=== PATIENT | male | born 1990 | race Caucasian/White ===

== ENCOUNTER 2020-07-31 19:05 | Emergency (ER) | payer MEDICAID, SELFPAY ==
[2020-07-31 19:07] VITALS: BP 127/78; PULSE 67; RESP 14; TEMP 36.1; O2SAT 100; BMI 22.2
--- NOTE | 2020-07-31 19:17 | CT_ITS ---
STUDY: CT ABDOMEN AND PELVIS WITHOUT CONTRAST REASON FOR EXAM: Male, 30 years old. Lower quadrant pain. Nausea and vomiting. Question kidney stone. RADIATION DOSAGE (If Supplied By Facility): CTDIvol = ( 6.69 ) mGy, DLP = ( 351.17 ) mGycm TECHNIQUE: Transaxial images were obtained from the dome of the diaphragm to the symphysis pubis without oral contrast, and without intravenous contrast. Sagittal and coronal images were reconstructed. Individualized dose optimization techniques were used for this CT. COMPARISON: None. FINDINGS: The visualized lung bases are unremarkable. The visualized portions of the heart are within normal limits. Normal liver. Normal gallbladder and extrahepatic biliary system. Normal spleen. Normal pancreas. Normal bilateral adrenal glands. Normal right kidney. Normal left kidney. Normal visualized ureters. Small hiatal hernia. The stomach is otherwise unremarkable. Normal small intestine. Cold and is thick-walled nondistended from the cecum to the rectum. There is no marked stranding of the adjacent fat however diffuse colitis cannot be ruled out. The appendix is visualized and appears normal. Normal abdominal aorta. Normal inferior vena cava. Normal retroperitoneum. Normal urinary bladder. Normal prostate. There are phleboliths in the pelvis without lymphadenopathy. No free air or free fluid is seen within the peritoneal cavity. Normal abdominal wall. Normal osseous structures. There is a metal beatriz in the left femoral shaft. CT/Abdomen/Pelvis without Cont IMPRESSION: 1. Findings suggestive of diffuse colitis 2. Question hiatal hernia. 3. Otherwise normal CT of the abdomen and pelvis. Electronically Signed: Ricci Monteiro DO at 20:05 EST Tel [phone], Service support ,
--- NOTE | 2020-07-31 19:18 | ED.VIS.GI ---
History of Present Illness Chief Complaint: Abd Pain Informant: Patient - Abdominal Pain/Flank Pain Onset: Today - around 13 hrs [employer] Context: Sudden Onset - after playing basketball this AM Timing: Continuous, Waxes and wanes Quality: Aching Location: LLQ - w/o radiation Current Severity: Severe Maximum Severity: Severe Worsened by: Nothing Relieved by: Nothing - Nausea/Vomiting/Emesis GI Symptom: Nausea, Vomiting Onset: Today Quality: Nonbilious Severity: Moderate - Diarrhea/Melena/Hematochezia GI Symptom: Negative for: Diarrhea, Melena, Hematochezia Associated Symptoms: Negative for: Dysuria, Frequency, Hematuria, Urgency Narrative: Sudden onset colicky left lower quadrant pain all day today. When he gets severe he is vomiting. Denies any urinary symptoms, fevers, chills. Never had this before. Healthy otherwise, no history of abdominal surgeries. Prior similar symptoms: No Recent Illness/Hospitalization: No Past Medical History - Allergies and Home Meds Allergies/Adverse Reactions: Allergies No Known Allergies Allergy (Verified 07/31/20 19:06) Primary Care Physician: Joe Rai DO [Primary Care Provider] - Past Medical History: None Smoking Status: Never smoker Review of Systems General: Denies: Chills, Fever, Sweats Eyes: Denies: Visual changes - bilaterally, Diplopia ENT: Denies: Rhinorrhea, Sore throat Cardiovascular: Denies: Chest pain, Palpitations Respiratory: Denies: Dyspnea, Cough, Dyspnea on exertion Gastrointestinal: Reports: Abdominal pain, Nausea, Vomiting. Denies: Diarrhea, Melena, Hematochezia Genitourinary: Denies: Dysuria, Hematuria, Frequency Musculoskeletal: Denies: Back pain, Swelling, Extremity Pain Skin: Denies: Rash, Wounds Neurological: Denies: Headache, Weakness, Numbness Physical Exam Vital Signs/Narrative: Vital Signs Temp Pulse Resp BP Pulse Ox 07/31/20 19:07 97 F L 67 14 127/78 H 100 Inital Vital Signs reviewed: Yes General: Well nourished, Well developed, Acute Distress - mild, painful Head: Normocephalic, Atraumatic Eyes: Perrl, EOMI ENT: Moist mucous membranes, No rhinorrhea Neck: Supple, Nontender Cardiovascular: Regular rate, Regular rhythm, No murmurs Respiratory: No distress, CTA bilaterally, Chest nontender Abdomen: Soft, Nondistended, Normal bowel sounds, Tender - LLQ. Negative for: Guarding, Rebound tenderness Back: Nontender, Normal Inspection. Negative for: CVA tenderness Extremities: Nontender, No edema Skin: Normal color, No rash, No Trauma Neurological: Alert, Oriented x3, Cranial nerves II-XII grossly intact, Normal Strength, Normal Sensation Psychological: Normal affect, Normal Mood Diagnostic/Tx/Re-eval Impressions Abdomen/Pelvis CT 07/31/20 19:17 IMPRESSION: 1. Findings suggestive of diffuse colitis 2. Question hiatal hernia. 3. Otherwise normal CT of the abdomen and pelvis. Electronically Signed: Ricci Monteiro DO at 20:05 EST Tel [phone], Service support , Abdomen/Pelvis CTA 07/31/20 20:25 IMPRESSION: 1. Normal abdominal aorta. Normal vasculature of the abdomen and pelvis. 2. No other major interval change from the CT of the abdomen and pelvis performed approximately one hour earlier Electronically Signed: Ricci Monteiro DO at 21:53 EST Tel [phone], Service support , 07/31/20 19:17 Abdomen/Pelvis without Cont [CT] Stat 07/31/20 20:25 CT ANGIO ABD&PEL W/O&W/DYE [CT] Stat Laboratory Results 07/31/20 07/31/20 07/31/20 19:30 19:30 19:30 WBC 14.6 H RBC 4.76 Hgb 14.3 Hct 41.4 MCV 87.0 MCH 30.0 MCHC 34.5 RDW Std Deviation 38.2 RDW Coeff of Chyna 11.9 Plt Count 295 MPV 10.4 Immature Gran % (Auto) 0.400 Neut % (Auto) 89.1 H Lymph % (Auto) 4.4 L Garza % (Auto) 5.8 Eos % (Auto) 0.1 Baso % (Auto) 0.2 Absolute Neuts (auto) 13.0 H Absolute Lymphs (auto) 0.64 L Nucleated RBC % 0 Sodium 138 Potassium 3.6 Chloride 104 Carbon Dioxide 25.0 Anion Gap 9 BUN 23 H Creatinine 1.20 Estim Creat Clear Calc 87.88 Est GFR (MDRD) Af Amer 90 Est GFR (MDRD) Non-Af 74 BUN/Creatinine Ratio 19.2 Glucose 159 H Lactic Acid Calcium 9.6 Total Bilirubin 0.60 Direct Bilirubin 0.23 AST 24 ALT 30 Alkaline Phosphatase 85 Total Protein 7.7 Albumin 4.3 Globulin 3.4 Urine Color Urine Clarity Urine pH Ur Specific [place] Urine Protein Urine Glucose (UA) Urine Ketones Urine Occult Blood Urine Nitrite Urine Bilirubin Urine Urobilinogen Ur Leukocyte Esterase Urine RBC Urine WBC Ur Squamous Epith Cells Urine Bacteria Urine Mucus 07/31/20 07/31/20 07/31/20 19:33 20:39 21:30 WBC RBC Hgb Hct MCV MCH MCHC RDW Std Deviation RDW Coeff of Chyna Plt Count MPV Immature Gran % (Auto) Neut % (Auto) Lymph % (Auto) Garza % (Auto) Eos % (Auto) Baso % (Auto) Absolute Neuts (auto) Absolute Lymphs (auto) Nucleated RBC % Sodium Potassium Chloride Carbon Dioxide Anion Gap BUN Creatinine Estim Creat Clear Calc Est GFR (MDRD) Af Amer Est GFR (MDRD) Non-Af BUN/Creatinine Ratio Glucose Lactic Acid Cancelled 1.9 Calcium Total Bilirubin Direct Bilirubin AST ALT Alkaline Phosphatase Total Protein Albumin Globulin Urine Color Yellow Urine Clarity Clear Urine pH 6.0 Ur Specific [place] 1.015 Urine Protein 30 H Urine Glucose (UA) Normal Urine Ketones 150 H Urine Occult Blood 10 H Urine Nitrite Negative Urine Bilirubin Negative Urine Urobilinogen Normal Ur Leukocyte Esterase 25 H Urine RBC 0 SEEN Urine WBC 0-5 SEEN Ur Squamous Epith Cells 0 SEEN Urine Bacteria 0 SEEN Urine Mucus 0 SEEN - Medical Decision Making Differential includes diverticulitis, kidney stone, other causes of ureteral obstruction and/or intestinal pain such as functional causes, intussusception, perforated viscus, and this list is not all inclusive. CT was obtained in addition to lab work, urine, he was treated with IV fluids analgesics and Zofran. Plain CT as above shows possible diffuse wall thickening of the colon without signs of adjacent fat stranding. No other acute abnormality seen. He has a significant leukocytosis and after Toradol and Zofran, he is still vomiting and in immense pain. To further differentiate the cause as possible in the emergency department, CT angiography of the abdomen/pelvis is obtained in addition to providing better symptom control. This showed no acute vascular blockage/process, and no other acute process. I reviewed the films and discussed with radiologist who interpreted them, and also discussed them with surgery Dr. Delgadillo. Both agree that there is nothing acute on the imaging. On reexamination after 2 doses of morphine and 3 doses of antiemetics, the patient is keenly alert and very well-appearing saying that he feels much better. I reexamined him. In the area of the ileocecal valve on the CT in his right lower quadrant, there was some prominence in the bowel/tissue there even on the noncontrast scan, he has no tenderness in this area. He is very mildly tender in the distal left lower quadrant only with no guarding or rebound tenderness, distention, or abnormal bowel sounds. At this time, it is clear he does not have an acutely surgical problem. He has a leukocytosis which is nonspecific. The initial scan was suspicious of diffuse colonic bowel wall thickening and possible colitis. He has had no bright red blood per rectum or melena, states he has been having small hard stools in the past couple weeks, normal before that. No tenesmus or mucus. Surgery does not think he necessarily needs a colonoscopy based on this information, however if he started developing bleeding that would change. He agrees that admitting him would not result in an emergent colonoscopy or other study at this time, and since the patient is doing better clinically I do not think he needs to necessarily be admitted. We discussed empiric antibiotics to cover possible infectious causes of colitis, he was given a dose of Zosyn empirically here followed by a prescription for Augmentin and I also gave him prescriptions for Sargent, dicyclomine, and Zofran to use as needed. Discussed trying to control his symptoms if they recur, and take antibiotics for couple days, and we discussed reasons to return, following up with his doctor otherwise. They are comfortable with that overall plan and all questions answered at the bedside. ED Disposition - Plan for ED Patient: Disposition: Home or Assisted Living Diagnosis: LLQ abdominal pain, Colitis Instructions: ED Unknown Causes of Abdominal ... Prescriptions: Amox/Clavulanate Tablet [Augmentin Tablet] 875 mg PO Q12H #20 tab Prescription Printed Dicyclomine HCl [Bentyl] 20 mg PO Q4H PRN #16 cap PRN Reason: abdominal cramping Prescription Printed Hydrocodone Bitart/Apap 5-325 [Sargent 5MG-325MG] 1 tab PO Q4H PRN PRN 2 Days #10 tab PRN Reason: Pain Prescription Printed Ondansetron [Zofran Odt] 8 mg PO Q8H PRN PRN #20 tab PRN Reason: Nausea Prescription Printed Referrals: Joe Rai DO [Primary Care Provider] - 3-5 Days if not improving
[2020-07-31] MEDS: 0.9% Normal Saline 1,000 ML 250 ML IV (19:28)
[2020-07-31] MEDS: Ondansetron 4 MG/2 ML Vial IV ×2 (19:29→21:11)
[2020-07-31] MEDS: Ketorolac 30 MG/ML Syringe IV (19:29)
[2020-07-31 19:49] LABS: Bacteria 0 SEEN /hpf (None Seen); Mucous, Urine 0 SEEN /hpf (<or=2+); Red Blood Cells-Urine 0 SEEN /hpf (0-5); Squamous Epithelial Cells - UA 0 SEEN /hpf (0-5)
[2020-07-31 20:08] LABS: Absolute Lymphocyte Count 0.64 X10^3/uL (0.83-4.51); Basophil# 0.03 X10^3/uL; Basophil% 0.2 % (0-1); Eosinophil# 0.01 X10^3/uL; Eosinophils% 0.1 % (0-5); Hematocrit 41.4 % (40-54); Hemoglobin 14.3 g/dL (13.0-16.5); Lymphocyte # 0.64 X10^3/ul (4.0); Lymphocyte % 4.4 % (19-41); Mean Corp Hgb Conc 34.5 g/dL (32-36); Mean Platelet Vol. 10.4 fl (6.2-12.0); Monocyte# 0.85 X10^3/uL; Monocyte% 5.8 % (0-10); NRBC Flagged by Analyzer 0 % (0-5); Neutrophil # 12.98 X10^3/uL (2.7-7.7); Neutrophil % 89.1 % (47-70); Platelet Count 295 K/mm3 (150-450); RBC Distribution Width CV 11.9 % (11.6-14.6); RBC Distribution Width SD 38.2 fl (35.1-43.9); Red Blood Count 4.76 M/mm3 (4.6-6.2); White Blood Count 14.6 K/mm3 (4.4-11.0)
[2020-07-31 20:09] LABS: Color, Urine Yellow (Yellow); Glucose, Dipstick Normal (Normal); Leukocyte Esterase-Dipstick 25 /ul (Negative); Nitrite-Dipstick Negative (Negative); Occult Blood-Urine 10 /ul (Negative); Protein-Dipstick 30 mg/dl (Negative); Specific Gravity, Urine 1.015 (1.002-1.030); Urine Bilirubin Dipstick Negative (Negative); Urine Clarity Clear (Clear); Urine Urobilinogen Normal (Normal)
[2020-07-31 20:18] LABS: Ketone-Dipstick 150 mg/dl (Negative)
[2020-07-31 20:19] LABS: White Blood Cells 0-5 SEEN /hpf (0-5)
[2020-07-31 20:20] LABS: Anion Gap 9 (5-15); BUN 23 mg/dL (7-18); BUN/Creat Ratio 19.2 RATIO (10-20); Calcium,Total 9.6 mg/dL (8.5-10.1); Chloride 104 mmol/L (98-107); EST Glomerular Filtration Rate 74 mL/min (>60); Est Glom Filt Rate - Afr Amer 90 mL/min (>60); Estimated Creatinine Clearance 87.88 ml/min; Glucose 159 mg/dL (74-106); Potassium 3.6 mmol/L (3.5-5.1); Sodium Level 138 mmol/L (136-145)
[2020-07-31] MEDS: Morphine 4 MG/ML Syringe IV ×2 (20:21→21:12)
[2020-07-31] MEDS: Metoclopramide 10 MG/2 ML Vial 5 MG IV (20:22)
--- NOTE | 2020-07-31 20:25 | CT_ITS ---
STUDY: CTA OF THE ABDOMINAL AORTA REASON FOR EXAM: Male, 30 years old. Lower abdominal pain. Leukocytosis. Nausea and vomiting. RADIATION DOSAGE (If Supplied By Facility): CTDIvol = ( 20.38 ) mGy, DLP = ( 663.77 ) mGycm TECHNIQUE: Axial CT angiography multi-detector data acquisition was obtained from the diaphragm to the ischial tuberosities following intravenous administration of IV 100mL Isovue-370. Axial images and MIP images were reconstructed from the axial data set. Post-processing of the angiographic images was performed, with multiplanar reformation and 3D reconstruction. Individualized dose optimization techniques were used for this CT. TECHNICAL QUALITY: Good COMPARISON: CT of the abdomen and pelvis, 07/31/2020 (1936) Descriptors of Narrowing: None (0%) Mild (< 50%) Moderate (50-70%) Severe (70-90%) Subtotal/Total Occlusion (90-100%) Non-Evaluable (technically non-diagnostic FINDINGS: Abdominal aorta: No demonstrated narrowing. Celiac and superior mesenteric arteries: No demonstrated narrowing. Inferior mesenteric artery: No demonstrated narrowing. Right renal artery(arteries): No demonstrated narrowing. Left renal artery(arteries): No demonstrated narrowing. Right common iliac artery: No demonstrated narrowing. Right external iliac artery: No demonstrated narrowing. Right internal iliac artery: No demonstrated narrowing. Left common iliac artery: No demonstrated narrowing. Left external iliac artery: No demonstrated narrowing. Left internal iliac artery: No demonstrated narrowing. Lung bases are clear. The heart is normal in size. Normal liver. Normal gallbladder and biliary ductal system. Normal spleen. Normal pancreas. Normal adrenal glands. Normal kidneys. Normal IVC and retroperitoneum. Normal stomach. Normal small bowel. Again seen is wall thickening and edema of the colon from the ascending colon to the rectum suggesting mild colitis. There is normal contrast-enhancement of the mesenteric arterial structures. Normal appendix. Normal urinary bladder. The prostate is borderline enlarged. Phleboliths are seen in the pelvis. There is no pelvic lymphadenopathy. No free air or free fluid is seen within the peritoneal cavity. Normal abdominal wall. Normal osseous structures. CT/CT ANGIO ABD&PEL W/O&W/DYE IMPRESSION: 1. Normal abdominal aorta. Normal vasculature of the abdomen and pelvis. 2. No other major interval change from the CT of the abdomen and pelvis performed approximately one hour earlier Electronically Signed: Ricci Monteiro DO at 21:53 EST Tel [phone], Service support ,
[2020-07-31 20:55] LABS: AST(SGOT) 24 U/L (15-37); Alanine Aminotransfer ALT/SGPT 30 U/L (16-61); Albumin, Serum 4.3 g/dL (3.2-5.0); Alkaline Phosphatase 85 U/L (45-117); Bilirubin, Direct 0.23 mg/dL (0.00-0.30); Globulin 3.4 g/dL (2.2-4.2); Protein, Total 7.7 g/dL (6.4-8.2)
[2020-07-31 21:15] VITALS: BP 150/83; PULSE 83; RESP 16; O2SAT 100
[2020-07-31 22:08] LABS: Lactic Acid 1.9 mmol/L (0.4-1.9)
[2020-07-31 23:02] VITALS: BP 146/70; PULSE 80; RESP 18; O2SAT 96
== END 2020-07-31 23:33 | disposition home or self-care (01) ==
PROVIDERS: Emergency Provider Emergency Medicine; PCP Family Medicine
DX: R10.32 Left lower quadrant pain (principal); K52.9 Noninfective gastroenteritis and colitis, unspecified
CPT/HCPCS: 74174; 74176; 80048; 80076; 81001; 83605; 85025; 96365; 96366; 96375; 96376; 99282; J7030; Q9967; A4216; J2405

== ENCOUNTER 2021-07-13 11:26 | Emergency (ER) | payer MEDICAID, SELFPAY ==
[2021-07-13 11:27] VITALS: BP 138/91; PULSE 71; RESP 18; TEMP 36.2; O2SAT 100; BMI 21.8
--- NOTE | 2021-07-13 12:30 | ED.VIS.GI ---
HPI HPI - GI History of Present Illness Chief Complaint: Abd Pain Informant: patient Abdominal Pain/Flank Pain Onset: Today Context: Gradual Onset Timing: Continuous Quality: - (Twisting) Location: LLQ Worsened by: Nothing Relieved by: Nothing Nausea/Vomiting/Emesis GI Symptom: Positive for Nausea and Vomiting Quality: Negative for Coffee ground and Hematemesis Diarrhea/Melena/Hematochezia GI Symptom: Negative for Diarrhea, Melena and Hematochezia Associated Symptoms Associated Symptoms: Negative for Dysuria, Frequency and Hematuria Narrative Narrative: Patient presents with abdominal pain that began today. Patient states the pain is over the left lower quadrant. Patient states it feels like somebody is twisting the his bowels. Patient states nothing makes it worse and nothing makes it better. Patient states it is gradually gotten worse throughout the day today. Patient admits to some nausea and vomiting. Patient denies any hematemesis or coffee-ground emesis. Patient denies any diarrhea, melena, or hematochezia. Patient denies any dysuria, frequency, or hematuria. PFSH PFSH Medical History no medical history no medical history Home Medications hydrocodone-acetaminophen 1 tab PO Q6H PRN PRN 3 Days #10 tablet 07/13/21 [Rx Last Taken Unknown] naproxen 500 mg PO BID 07/13/21 [History Last Taken Unknown] ondansetron 4 mg PO Q8H PRN PRN #10 tab 07/13/21 [Rx Last Taken Unknown] Allergy/AdvReac Type Severity Reaction Status Date / Time No Known Allergies Allergy Verified 07/13/21 11:29 Surgical History (Updated 07/13/21 @ 16:[address] Taj Lazo DO) S/P ORIF (open reduction internal fixation) fracture Social History Smoking Status: Never smoker ROS ROS ED Constitutional Constitutional ED: Reports chills, subjective and sweats; Denies fever(s) Eyes Eyes: Denies blurry vision or change in vision ENT ENT ED: Denies rhinorrhea or sore throat Cardiovascular Cardiovascular: Denies chest pain or palpitations Respiratory/Chest Respiratory/Chest: Denies cough or dyspnea Gastrointestinal Gastrointestinal: Reports abdominal pain, nausea and vomiting Genitourinary Genitourinary ED: Denies dysuria or hematuria Musculoskeletal Musculoskeletal: Reports back pain and neck pain Integumentary Denies abscess or rash Neurologic Neurologic: Denies headache(s) or weakness Allergic/Immunologic Allergic/Immunologic ED: Denies mouth swelling or urticaria EXAM Physical Exam Const Vital Signs: 07/13/21 11:27 07/13/21 13:26 07/13/21 14:29 Temperature 97.2 F L 97.6 F L Temperature Source Temporal Temporal Pulse Rate 71 59 L 59 L Respiratory Rate 18 16 19 H Blood Pressure 138/91 H 116/90 H 134/82 H Blood Pressure Mean 106 98 99 Pulse Ox 100 100 100 Oxygen Delivery Method Room Air Room Air Room Air 07/13/21 15:00 Temperature Temperature Source Pulse Rate Respiratory Rate 18 Blood Pressure Blood Pressure Mean Pulse Ox Oxygen Delivery Method Positive well nourished and well developed General Appearance ED: well developed and NAD HEENT Reports moist mucous membranes Neck supple and no JVD Resp normal respiratory effort and clear to auscultation bilaterally Cardio regular rate, regular rhythm and no murmurs GI normal to inspection, nondistended, normoactive bowel sounds and non-distended Auscultation: normoactive bowel sounds Palpation: soft and tender LLQ; Negative for guarding or rebound tenderness present Extremity normal to inspection General Extremety ED: Negative for edema or tenderness General Extremity: Negative for edema Neuro oriented x3, CN's II-XII intact bilaterally and no sensory deficits noted Sensorium / Orientation: alert Motor Exam: strength 5/5 throughout Psych mental status grossly normal Skin no rashes or lesions noted MDM MDM MDM Narrative Medical decision making narrative: Patient was given a dose of Zofran here initially. Patient was having some vomiting after trying to drink contrast. Patient was given a repeat dose of Zofran. CBC shows a leukocytosis of 16.2. Basic metabolic profile was within normal limits. Patient was given a dose of Toradol and Reglan here. CT scan of the abdomen and pelvis was obtained. There is no acute findings noted. This was interpreted by the radiologist and reviewed by myself. Urinalysis was within normal limits. Patient was advised of his findings. Patient was given a prescription for Zofran and a short course of [place]. Patient was instructed to follow-up with his primary care physician in 3 to 5 days. Patient states he has an appoint with a senior policy analyst on August 29. Patient states he will try to get in sooner. Patient understands and is agreeable with the plan. All questions were answered. Lab Data Attestation: I reviewed the patient's lab results. Labs: Laboratory Results - last 24 hr 07/13/21 07/13/21 07/13/21 12:37 12:37 16:41 WBC 16.2 H RBC 4.94 Hgb 15.5 Hct 44.8 MCV 90.7 MCH 31.4 MCHC 34.6 RDW Std Deviation 40.0 RDW Coeff of Chyna 12.1 Plt Count 281 MPV 9.7 Immature Gran % (Auto) 0.500 Neut % (Auto) 80.1 H Lymph % (Auto) 9.3 L [place] % (Auto) 9.7 Eos % (Auto) 0.2 Baso % (Auto) 0.2 Absolute Neuts (auto) 12.9 H Absolute Lymphs (auto) 1.50 Nucleated RBC % 0 Differential Comment COMMENT Diff Path Review May foll Sodium 139 Potassium 4.0 Chloride 107 Carbon Dioxide 28.0 Anion Gap 4 L BUN 20 H Creatinine 1.14 Estim Creat Clear Calc 89.88 Est GFR (MDRD) Af Amer 95 Est GFR (MDRD) Non-Af 78 BUN/Creatinine Ratio 17.5 Glucose 119 H Calcium 9.6 Urine Color Yellow Urine Clarity Clear Urine pH 9.0 Ur Specific [place] 1.015 Urine Protein 30 H Urine Glucose (UA) Normal Urine Ketones 15 H Urine Occult Blood Negative Urine Nitrite Negative Urine Bilirubin Negative Urine Urobilinogen Normal Ur Leukocyte Esterase 25 H Urine RBC 0 SEEN Urine WBC 0-5 SEEN Ur Squamous Epith Cells 0-5 SEEN Urine Bacteria 0 SEEN Urine Mucus 0 SEEN Radiography Diagnostic Testing: Clinical Impression(s) from Imaging Studies Abdomen/Pelvis CT 07/13/21 13:34 IMPRESSION: No acute findings in the abdomen or pelvis. Electronically Signed: Shane Looney MD ([place]) at 16:15 EST Reading Location ID and State: [address] [place] [address] , Service support , Discharge Plan Triage Chief Complaint: Abd Pain ED Provider: Taj Lazo Dx/Rx/DC Orders Clinical Impression: Abdominal pain Instructions: ED Abdominal Pain Unkn Cause Male... Prescriptions: New hydrocodone-acetaminophen [hydrocodone-acetaminophen] 1 TABLET tablet 1 tab PO Q6H PRN PRN (Reason: Pain) 3 Days Qty: 10 RF: 0 ondansetron [ondansetron] 4 MG tablet 4 mg PO Q8H PRN PRN (Reason: Nausea) Qty: 10 RF: 0 No Action naproxen 500 mg tablet 500 mg PO BID RF: 0 Primary Care Provider: Joe Rai Referrals: Joe Rai DO [Primary Care Provider] - 3-5 Days Disposition Disposition: Home, Self Care
[2021-07-13 12:52] LABS: Absolute Neutrophil Count 12.9 X10^3/uL (2.0-7.7); Basophil# 0.04 X10^3/uL; Basophil% 0.2 % (0-1); Eosinophil# 0.03 X10^3/uL; Eosinophils% 0.2 % (0-5); Hematocrit 44.8 % (40-54); Hemoglobin 15.5 g/dL (13.0-16.5); Lymphocyte % 9.3 % (19-41); Mean Corp Hgb Conc 34.6 g/dL (32-36); Mean Corpuscular Hgb 31.4 pg (27.0-32.0); Mean Corpuscular Volume 90.7 fL (80-94); Mean Platelet Vol. 9.7 fl (6.2-12.0); Monocyte# 1.56 X10^3/uL; Monocyte% 9.7 % (0-10); NRBC Flagged by Analyzer 0 % (0-5); Neutrophil # 12.94 X10^3/uL (2.7-7.7); Neutrophil % 80.1 % (47-70); POSITIVE DIFFERENTIAL YES; Platelet Count 281 K/mm3 (150-450); RBC Distribution Width CV 12.1 % (11.6-14.6); Red Blood Count 4.94 M/mm3 (4.6-6.2); White Blood Count 16.2 K/mm3 (4.4-11.0)
[2021-07-13 12:53] LABS: Differential Indicated SCAN CRITERIA MET
[2021-07-13 13:13] LABS: Anion Gap 4 (5-15); BUN 20 mg/dL (7-18); BUN/Creat Ratio 17.5 RATIO (10-20); Calcium,Total 9.6 mg/dL (8.5-10.1); Chloride 107 mmol/L (98-107); Creatinine, Serum 1.14 mg/dL (0.70-1.30); EST Glomerular Filtration Rate 78 mL/min (>60); Est Glom Filt Rate - Afr Amer 95 mL/min (>60); Estimated Creatinine Clearance 89.88 ml/min; Glucose 119 mg/dL (74-106); Sodium Level 139 mmol/L (136-145)
[2021-07-13 13:26] VITALS: BP 116/90; PULSE 59; RESP 16; O2SAT 100
--- NOTE | 2021-07-13 13:34 | CT_ITS ---
EXAM: CT ABDOMEN AND PELVIS WITH INTRAVENOUS CONTRAST CLINICAL INDICATION: Left lower quadrant abdominal pain TECHNIQUE: Helically acquired images were obtained of the abdomen and pelvis with intravenous contrast. This CT exam was performed using one or more of the following dose reduction techniques: automated exposure control, adjustment of the mA and/or kV according to patient size, and/or use of iterative reconstruction technique. This report was created using [employer] report generation technology. CONTRAST: 100 mL Isovue-300 COMPARISON: None. FINDINGS: LOWER THORAX: Unremarkable. Lung bases are clear. No cardiomegaly. No significant pericardial effusion. ABDOMEN: LIVER: Unremarkable. Homogeneous. No focal mass. GALLBLADDER AND BILE DUCTS: Unremarkable. No calcified gallstones. No gallbladder distention or wall edema. No intra- or extrahepatic biliary ductal dilation. PANCREAS: Unremarkable. No focal cystic or solid mass. SPLEEN: Unremarkable. Normal size without focal cystic or solid mass. ADRENALS: Unremarkable. No nodules. KIDNEYS AND URETERS: Unremarkable. Normal renal size and position. No hydronephrosis. STOMACH AND BOWEL: Sigmoid diverticulosis without evidence of adjacent stranding/diverticulitis. No stomach or bowel distention. PELVIS: APPENDIX: No evidence of acute appendicitis. BLADDER: Unremarkable. REPRODUCTIVE: Unremarkable as visualized. No mass. ABDOMEN and PELVIS: INTRAPERITONEAL SPACE: Unremarkable. No ascites or other fluid collection. No free air. BONES/JOINTS: Unremarkable. No suspicious lytic or blastic abnormality. SOFT TISSUES: Unremarkable. No discrete abdominal or pelvic wall hernia. VASCULATURE: Unremarkable. Abdominal aorta is non-dilated. LYMPH NODES: Unremarkable. No enlarged lymph nodes. CT/Abdomen/Pelvis WITH Contrast IMPRESSION: No acute findings in the abdomen or pelvis. Electronically Signed: Shane Looney MD ([place]) at 16:15 [facility] ,
[2021-07-13] MEDS: Ondansetron 4 MG/2 ML Vial IV ×2 (14:09→14:49)
[2021-07-13 14:29] VITALS: BP 134/82; PULSE 59; RESP 19; TEMP 36.4; O2SAT 100
[2021-07-13 15:00] VITALS: RESP 18
[2021-07-13 16:46] LABS: Bacteria 0 SEEN /hpf (None Seen); Mucous, Urine 0 SEEN /hpf (<or=2+); Red Blood Cells-Urine 0 SEEN /hpf (0-5)
[2021-07-13 16:49] LABS: Color, Urine Yellow (Yellow); Glucose, Dipstick Normal (Normal); Ketone-Dipstick 15 mg/dl (Negative); Leukocyte Esterase-Dipstick 25 /ul (Negative); Nitrite-Dipstick Negative (Negative); Occult Blood-Urine Negative /ul (Negative); Protein-Dipstick 30 mg/dl (Negative); Specific Gravity, Urine 1.015 (1.002-1.030); Urine Bilirubin Dipstick Negative (Negative); Urine Clarity Clear (Clear); Urine Urobilinogen Normal (Normal)
[2021-07-13 16:57] LABS: Squamous Epithelial Cells - UA 0-5 SEEN /hpf (0-5); White Blood Cells 0-5 SEEN /hpf (0-5)
[2021-07-13] MEDS: Metoclopramide 10 MG/2 ML Vial IV (17:22)
[2021-07-13] MEDS: Ketorolac 30 MG/ML Syringe IV (17:22)
[2021-07-15 12:54] LABS: Pathologist Review Reviewed
== END 2021-07-13 17:27 | disposition home or self-care (01) ==
PROVIDERS: Emergency Provider Emergency Medicine; PCP Family Medicine; Visit Provider Emergency Medicine
DX: R10.32 Left lower quadrant pain (principal); R11.2 Nausea with vomiting, unspecified; Z79.899 Other long term (current) drug therapy
CPT/HCPCS: 74177; 80048; 81001; 85025; 96374; 96375; 96376; 99284; J7030; Q9967; A4216; J2405

== ENCOUNTER 2023-04-14 13:51 | Emergency (ER) | payer MEDICAID, SELFPAY ==
[2023-04-14 13:51] VITALS: BP 134/81; PULSE 46; RESP 18; TEMP 36.3; O2SAT 100; BMI 20.9
[2023-04-14] MEDS: Ondansetron 4 MG/2 ML Vial IV (14:26)
[2023-04-14] MEDS: LORazepam 2 MG/ML Syringe 0.5 MG IV (14:26)
[2023-04-14] MEDS: Capsaicin 0.025% 1 APPLIC Tube TOPICAL (14:39)
[2023-04-14] MEDS: DiphenhydrAMINE 25 MG, ChlorproMAZINE IM 25 MG in 0.9% Normal Saline (100mL Bag) 100 ML 203 MG IV (14:40)
[2023-04-14] MEDS: Famotidine 200 MG/20 ML MDV 20 MG in 0.9% Normal Saline (Pres. free 8 ML 300 MG IV (14:40)
[2023-04-14 15:06] LABS: Anion Gap 8 (5-15); BUN 35 mg/dL (7-18); BUN/Creat Ratio 31.8 RATIO (10-20); Calcium,Total 9.6 mg/dL (8.5-10.1); Chloride 108 mmol/L (98-107); EST Glomerular Filtration Rate 81 mL/min (>60); Est Glom Filt Rate - Afr Amer 98 mL/min (>60); Estimated Creatinine Clearance 88.04 ml/min; Glucose 147 mg/dL (74-106); Potassium 4.1 mmol/L (3.5-5.1); Sodium Level 142 mmol/L (136-145)
--- NOTE | 2023-04-14 15:30 | EDS_ITS ---
HPI History of Present Illness Chief Complaint: Abd Pain Detail of Chief Complaint: Abdominal pain, nausea and vomiting Informant: patient and spouse/S.O. Onset/Context/Timing Onset: Today Context: Sudden Onset Timing: Continuous Quality: Pain Location: Abdomen Current Severity: Severe Maximum Severity: Severe Worsened by: Nothing specific Relieved by: Nothing Associated Symptoms Associated Symptoms: Lightheadedness and sweating after vomiting Narrative Narrative: Patient is a 33-year-old male who has undergone EGD, colonoscopy and scans with no known etiology for his abdominal pain with nausea vomiting. Of note patient smokes marijuana daily. Furthermore patient symptoms began after he started smoking marijuana. There is been no coffee-ground emesis or bloody emesis. His last bowel movement was today and was normal. He denies fever or night sweats. He does complain of chills after vomiting because he becomes diaphoretic. He presently does not have headache. Denies visual, ocular auditory symptoms. He denies auditory symptoms. He did have chest pain with vomiting. He presently does not have chest pain. He denies shortness of breath. He denies back pain. He has no other complaints. Prior similar symptoms: Yes Recent Illness/Hospitalization: No PFSH PFSH Home Medications hydrocodone-acetaminophen 5-325mg 5mg-325mg 1 tab PO Q6H PRN PRN Pain 3 days #10 TABLETS 07/13/21 [Rx Last Taken Unknown] naproxen 500 mg tablet 500 mg PO BID 07/13/21 [History Last Taken Unknown] ondansetron 4 mg disintegrating tablet 4 mg PO Q8H PRN PRN Nausea #10 tabs 07/13/21 [Rx Last Taken Unknown] Allergy/AdvReac Type Severity Reaction Status Date / Time No Known Allergies Allergy Verified 04/14/23 13:51 Surgical History S/P ORIF (open reduction internal fixation) fracture Social History (Updated 04/14/23 @ 15:[address] Karl Chatman MD) household members: significant other Smoking Status: Never smoker substance use type: marijuana ROS ROS ED Constitutional Constitutional ED: Denies chills, fever(s), subjective, sweats or weight loss Eyes Eyes: Denies blurry vision, change in vision or diplopia ENT ENT ED: Denies ear pain, rhinorrhea or sore throat Cardiovascular Cardiovascular: Reports other Details: Low heart rate ; Denies chest pain, orthopnea, palpitations, paroxysmal nocturnal dyspnea or racing heartbeat Respiratory/Chest Respiratory/Chest: Denies cough, dyspnea, dyspnea on exertion, orthopnea or paroxysmal nocturnal dyspnea Gastrointestinal Gastrointestinal: Reports abdominal pain, nausea and vomiting; Denies constipation, diarrhea or melena Genitourinary Genitourinary ED: Denies dysuria, hematuria or urinary frequency Musculoskeletal Musculoskeletal: Denies arthralgias, back pain, myalgias or neck pain Integumentary Denies abscess or rash Neurologic Neurologic: Denies headache(s), paresthesias or weakness Psychiatric Psychiatric: Denies anxiety or depression Endocrine Endocrinology: Denies cold intolerance or heat intolerance Hematologic/Lymphatic Hematologic/Lymphatic: Reports systems reviewed and no addt'l complaints, except as documented EXAM Physical Exam Const Vital Signs: 04/14/23 13:51 04/14/23 17:00 Temperature 97.4 F L Temperature Source Temporal Pulse Rate 46 L 83 Respiratory Rate 18 18 Blood Pressure 134/81 H 118/56 L Blood Pressure Mean 98 76 Pulse Ox 100 96 Oxygen Delivery Method Room Air Room Air Positive well nourished and well developed General Appearance ED: well developed; Negative for cyanotic, diaphoretic, NAD or pallor HEENT Reports dry mucous membranes; Denies moist mucous membranes HEENT Narrative: Head is atraumatic and normocephalic. Ears are normal. Nares are patent. Uvula is midline. Mouth ED: Yes dry mucous membranes Mouth: dry mucous membranes Eyes PERRL and EOMs intact bilaterally General Eye ED: Negative for pale conjunctiva or scleral icterus Neck no lymphadenopathy, supple and no JVD Chest Wall inspection of chest normal and palpation of chest normal Resp normal respiratory effort and clear to auscultation bilaterally Cardio regular rate, regular rhythm, S1 normal heart sound, S2 normal heart sound and no murmurs GI normal to inspection, nondistended, normoactive bowel sounds, non-tender, non- distended and no masses; Negative for hepatosplenomegaly Back/Spine no CVA tenderness Cervical Spine: Negative for cervical spine tenderness Thoracic Spine / Upper Back: Negative for thoracic spinal tenderness Lumbar Spine / Lower Back: Negative for lumbar spinal tenderness Extremity normal to inspection General Extremety ED: Negative for edema or tenderness General Extremity: Negative for edema Neuro oriented x3, CN's II-XII intact bilaterally and no sensory deficits noted Sensorium / Orientation: alert Motor Exam: strength 5/5 throughout Psych Psych Narrative: Affect is flat. Skin no rashes or lesions noted, no wounds and skin turgor normal General Skin Exam: elasticity normal; Negative for jaundice or pallor MDM MDM MDM Narrative Medical decision making narrative: Differential diagnoses include abdominal pain of unknown etiology with nausea vomiting, cannabis hyperemesis syndrome, cyclic vomiting. In light of the fact the patient had normal images and EGD and colonoscopy no imaging is needed at this time. We will obtain electrolyte panel to assess renal function and BUN to creatinine ratio as well as glucose. Patient was treated with meds for ED cyclic vomiting order set was initiated. Capsaicin cream was also ordered since he admits to daily marijuana use. Lab Data Attestation: I reviewed the patient's lab results. Lab results narrative: Basic metabolic panel is remarked for glucose of 147 and elevated BUN to creatinine ratio of 31-day 8 is consistent with dehydration. Labs: Laboratory Results - last 24 hr 04/14/23 14:39 Sodium 142 Potassium 4.1 Chloride 108 H Carbon Dioxide 26.0 Anion Gap 8 BUN 35 H Creatinine 1.10 Estim Creat Clear Calc 88.04 Est GFR (MDRD) Af Amer 98 Est GFR (MDRD) Non-Af 81 BUN/Creatinine Ratio 31.8 H Glucose 147 H Calcium 9.6 Treatment and Re-Evaluation :: Test at 1700. His symptoms are resolved. He does have a local reaction to the cream. Patient was informed my suspicions that he has cannabis hyperemesis syndrome. Recommendation is to discontinue marijuana. To prove that this is not due to marijuana he would have to stop for a minimum of 2 weeks most likely 4 weeks. Discharge Plan Triage Chief Complaint: Abd Pain Other Complaint: Nausea/Vomiting ED Provider: Karl Chatman Dx/Rx/DC Orders Clinical Impression: Cannabis hyperemesis syndrome concurrent with and due to cannabis abuse, Acute dehydration, Acute prerenal azotemia, Nondiabetic hyperglycemia Instructions: Cannabinoid Hyperemesis Syndrome, ED Hyperglycemia New Susp Diabetes Prescriptions: No Action naproxen 500 mg tablet 500 mg PO BID Patient Comments: take 1 tablet by mouth twice a day hydrocodone-acetaminophen [hydrocodone-acetaminophen] 1 TABLET tablet 1 tab PO Q6H PRN PRN (Reason: Pain) 3 Days Qty: 10 0RF ondansetron [ondansetron] 4 MG tablet 4 mg PO Q8H PRN PRN (Reason: Nausea) Qty: 10 0RF Primary Care Provider: Joe Rai Referrals: Joe Rai DO [Primary Care Provider] - 5-7 Days Activity Restrictions/Additional Instructions: 1. Your blood sugar is elevated. You will need to have this reassessed by your doctor within the next week. Disposition Disposition: Home, Self Care
[2023-04-14 17:00] VITALS: BP 118/56; PULSE 83; RESP 18; O2SAT 96
== END 2023-04-14 17:27 | disposition home or self-care (01) ==
PROVIDERS: Emergency Provider Emergency Medicine; PCP Family Medicine; Visit Provider Emergency Medicine
DX: F12.10 Cannabis abuse, uncomplicated (principal); R11.2 Nausea with vomiting, unspecified; E86.0 Dehydration; R79.89 Other specified abnormal findings of blood chemistry; R73.9 Hyperglycemia, unspecified
CPT/HCPCS: 80048; 96365; 96366; 96367; 96375; 99282; A4216; J2405; J3490